=== PATIENT | female | born 1970 | race Caucasian/White ===

== ENCOUNTER 2016-10-01 14:55 | Emergency (ER) | payer BC ==
--- NOTE | 2016-10-01 14:58 | PDOC ---
Attending Attestation - Resident Resident Name: Chava Romo - ED Attending Attestation I have performed the following: I have examined & evaluated the patient, The case was reviewed & discussed with the resident, I agree w/resident's findings & plan, Exceptions are as noted - HPI HPI: 10/01/16 14:58 The patient is a 46-year-old female witha significant past medical history of bladder and thyroid cancer (remission) who presents withs everal days of cough and chills. Her PCP prescribed Augmentin which she has been taking. She now presents with continued symptoms as well as chest pressure. It has been constant for over 36 hours. 10/01/16 15:43 10/01/16 17:06 - Physicial Exam PE: 10/01/16 She is well-appearing and in no acute distress Labs are clear to auscultation bilaterally - Medical Decision Making 10/01/16 17:06 Symptoms have resolved other than cough PERC negative Chest x-ray emergency Department interpretation: No acute cardiopulmonary disease Labs noted A single negative troponin with 36 hours of constant chest pain has a very high negative productive value for acute coronary syndrome Clinical impression: Cough I discussed the physical exam findings, ancillary test results and final diagnoses with the patient. I answered all of the patient's questions. The patient was satisfied with the care received and felt comfortable with the discharge plan and treatment plan. The patient will call their primary care physician within 24 hours to arrange follow-up and will return to the Emergency Department with any new, persistent or worsening symptoms. A portion of this note was documented by scribe services under my direction. I have reviewed the details of the note, within reason, and agree with the documentation with the following case summary and management plan written by me. 10/01/16 17:10 Discharge Disposition - Diagnosis Cough - Discharge Dispostion Disposition: HOME Condition at time of disposition: Improved Last Admission D/C Date: 12/02/13 - Prescriptions Prescriptions: Benzonatate [Tessalon Pearls -] 100 mg PO TID PRN #21 capsule PRN Reason: Cough - Referrals Referrals: Trang Diez MD [Primary Care Provider] - - Patient Instructions Additional Instructions: Followup with your regular doctor within a few days Do not miss your CT scan on monday If chest pain gets worse, return to ED - Post Discharge Activity
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
[2016-10-01 15:27] LABS: MCH 28.2 pg (25.7-33.7); MCHC 32.4 g/dl (32.0-36.0); MEAN CELL VOLUME 87.2 fl (80-96); MEAN PLT VOLUME 8.1 fl (7.5-11.1); PLATELET COUNT 252 K/MM3 (134-434); WHITE BLOOD COUNT 7.5 K/mm3 (4.0-10.0)
[2016-10-01 15:31] VITALS: BMI 30.1
[2016-10-01] MEDS ORDERED: ALPRAZolam 0.25 MG TABLET PO ONE (16:40)
[2016-10-01] MEDS ORDERED: ALPRAZolam 0.25 MG TABLET ONE (16:47)
[2016-10-01 16:55] LABS: ALK PHOS 75 U/L (32-92); ANION GAP 6 (8-16); BILIRUBIN,TOTAL 0.4 mg/dl (0.2-1.0); CALCIUM 9.1 mg/dl (8.4-10.2); CO2 27 mmol/L (22-28); CPK(DFH) 49 IU/L (26-140); CREATININE 0.6 mg/dl (0.6-1.3); GLUCOSE,RANDOM 85 mg/dl (74-106); SGOT/AST 17 U/L (10-42); SGPT/ALT 18 U/L (10-40); TOT PROT 6.8 g/dl (6.4-8.3)
[2016-10-01 17:05] LABS: TROPONIN I (DFP) < 0.03 ng/ml (0.03-0.50)
[2016-10-01 17:19] VITALS: BP 128/64; PULSE 76; TEMP 97.8
--- NOTE | 2016-10-02 23:33 | EKG ---
Test Reason : Blood Pressure : / mmHG Vent. Rate : 098 BPM Atrial Rate : 098 BPM P-R Int : 164 ms QRS Dur : 076 ms QT Int : 360 ms P-R-T Axes : 033 009 029 degrees QTc Int : 459 ms NORMAL SINUS RHYTHM T WAVE ABNORMALITY, CONSIDER ANTERIOR ISCHEMIA ABNORMAL ECG WHEN COMPARED WITH ECG OF 11-MAY-2015 06:31, T WAVE VARIATION Confirmed by TATO BENITES MD ([id number]) on 10/02/2016 11:33:43 PM Referred By: LD GRAYSON Confirmed By:TATO BENITES MD
== END 2016-10-01 17:20 | disposition home or self-care (01) ==
LOC: FER 14:55
DX: R05 Cough (principal); F41.8 Other specified anxiety disorders; E03.9 Hypothyroidism, unspecified; Z85.850 Personal history of malignant neoplasm of thyroid; Z85.51 Personal history of malignant neoplasm of bladder; F17.210 Nicotine dependence, cigarettes, uncomplicated
CPT/HCPCS: 36415; 71020-TC; 80053; 82550; 84484; 84703; 85027; 93005; 99285-25

== ENCOUNTER 2017-01-10 06:26 | Day surgery (SDC) | payer BC ==
[2017-01-06 10:59] VITALS: BMI 28.3
[2017-01-10] MEDS ORDERED: PROPOFOL 20 ML ONE ×2 (07:46)
[2017-01-10] MEDS ORDERED: MIDAZOLAM HCL 2 MG/2 ML SINGLE DOSE VIAL ONE (07:46)
[2017-01-10] MEDS ORDERED: ONDANSETRON 4 MG/2 ML VIAL ONE (07:50)
[2017-01-10] MEDS ORDERED: DEXAMETHASONE SOD PHOSPHATE 4 MG/1 ML VIAL ONE (07:50)
[2017-01-10] MEDS ORDERED: ACETAMINOPHEN INJECTION 100 ML IVPB ONE (07:52)
[2017-01-10] MEDS ORDERED: LIDOCAINE HCL/PF 2% SDV 5ML VIAL ONE (08:09)
--- NOTE | 2017-01-10 08:12 | HP ---
History & Physical Update - History History: No Change - Physical Physical: No Change - Assessment Assessment: No Change - Plan Plan: No Change (Consent signed and witnessed)
[2017-01-10] MEDS ORDERED: KETOROLAC TROMETHAMINE 30 MG/1 ML VIAL ONE (08:31)
[2017-01-10] MEDS ORDERED: LORAZEPAM CARPU-JECT 2 MG/ML DISP.SYRIN ONE (08:55)
[2017-01-10] MEDS ORDERED: ONDANSETRON 4 MG/2 ML VIAL IVPUSH PRN (08:57)
[2017-01-10] MEDS ORDERED: LORAZEPAM CARPU-JECT 2 MG/ML DISP.SYRIN IVPUSH ONE (08:57)
[2017-01-10] MEDS ORDERED: PROMETHAZINE HCL 25 MG/1 ML VIAL IVPUSH PRN (08:57)
[2017-01-10] MEDS ORDERED: LACTATED RINGERS SOLUTION 1,000 ML IV SCH (09:00)
[2017-01-10] MEDS ORDERED: oxyCODONE HCL 5 MG TABLET PO PRN (09:42)
[2017-01-10] MEDS ORDERED: IBUPROFEN 600 MG TABLET (FP) PO PRN (09:42)
[2017-01-10] MEDS ORDERED: ONDANSETRON 4 MG/2 ML VIAL IVPB PRN (09:42)
[2017-01-10] MEDS ORDERED: IBUPROFEN 800 MG/8 ML IJ IVPB PRN (09:42)
[2017-01-10] MEDS ORDERED: ELECTROLYTE-148 SOLN 1,000 ML IV SCH (09:45)
--- NOTE | 2017-01-10 09:47 | OP ---
Operative Note - Note: Operative Date: 01/10/17 Pre-Operative Diagnosis: 46 yo P1 with Perimenopausal bleed, Thick endometrium, personal h/o Bladder and Thyroid CA Operation: Hysteroscopy/Polypectomy/ D&C Findings: Overgrown Endometrium, endometrial polyp Post-Operative Diagnosis: Same as Pre-op Surgeon: Maxine Don Anesthesiologist/SHOE CLEANER: Sarmad Morocho Anesthesia: MAC Specimens Removed: 1. Endometrial polyp. 2. Endometrial curettings Estimated Blood Loss (mls): 10 Drains & Tubes with Location: 0cc Fluid deficit Drains, Volume Out (mls): 50 Fluid Volume Replaced (mls): 300 Operative Report Dictated: Yes
[2017-01-10 10:01] VITALS: TEMP 98.3
[2017-01-10 11:53] VITALS: BP 100/60; PULSE 76
--- NOTE | 2017-01-11 10:41 | PATH ---
Surgical Pathology Report Patient Name: JUAN ALBERTO CASTILLO [facility]. Rec. #: [id number] /Age/Gender: 1970 (Age: 46) / F Account: [id number] Location: [facility] SURGICAL Taken: 01/10/2017 Received: 01/10/2017 Reported: 01/11/2017 Physicians: Maxine Don M.D. Specimen(s) Received A: ENDOMETRIAL CURETTINGS & POLYPOID TISSUE B: POLYP Clinical History Menorrhagia, premenopausal Final Diagnosis A. 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 NO ENDOMETRIAL HYPERPLASIA OR CARCINOMA IDENTIFIED. B. 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 Comment: Recommend correlation with clinical findings and follow up as clinically indicated. Electronically Signed Edouard Yeung M.D. Gross Description A. Received in formalin labeled "endometrial curettings/polypoid tissue," is a 1.8 x 1.4 x 0.3 cm aggregate of johnson-brown soft tissue fragments. The formalin is filtered and the specimen is entirely submitted in one cassette. B. Received in formalin labeled "polyp," is a 1.5 x 0.7 x 0.3 cm aggregate of pink-johnson soft tissue fragments. The formalin is filtered and the specimen is entirely submitted in one cassette. /01/10/201701/10/2017
--- NOTE | 2017-01-12 19:58 | OP ---
DATE OF OPERATION: 01/10/2017 PREOPERATIVE DIAGNOSIS: A 46-year-old, para 1, with perimenopausal bleeding, thick endometrium, personal history of bladder and thyroid cancer. OPERATION: Hysteroscopy, polypectomy, dilation and curettage. FINDINGS: Overgrown endometrium and endometrial polyp. PREOPERATIVE DIAGNOSIS: A 46-year-old, para 1, with perimenopausal bleeding, thick endometrium, personal history of bladder and thyroid cancer. SURGEON: Maxine Don MD ANESTHESIOLOGIST: Sarmad Morocho MD ANESTHESIA: MAC. SPECIMENS SENT TO PATHOLOGY: 1. Endometrial polyp. 2. Endometrial curettings. DESCRIPTION OF THE OPERATIVE PROCEDURE: After assuring informed consent and matching patient's ID, the patient was brought to the operating room, where she was placed in dorsal lithotomy position and MAC anesthesia was administered. Perineum and vagina were prepped and draped in sterile fashion. Bladder was emptied with red rubber catheter and drained 50 mL of clear urine. Hassan specula were placed in the anterior and posterior fornix, and anterior cervical lip was articulated with single-tooth tenaculum. Cervix was gradually dilated with Fam dilators up to the gauge 19. The 5-mm 30-degree scope was introduced atraumatically into the uterus. Bilateral ostia were visualized and uterine lining was found to be slightly overgrown with 1 endometrial polyp. The serrated 2-gauge curette was used to remove the polyp and subsequently perform sharp curettage to send endometrial curettings to pathology. Hysteroscope was reintroduced 1 more time and the uterus was found to be intact. All instruments were removed from the vagina. Excellent hemostasis was achieved. Fluid deficit was zero mL. The patient received 300 mL of Plasmalyte. Estimated blood loss was 10 mL. The patient was brought to the recovery room in stable condition. Juan [id number]
== END 2017-01-10 11:00 | disposition home or self-care (01) ==
LOC: JASU-SURG 06:26
PROVIDERS: ATTEND Obstetrics & Gynecology
PROC: 0UB98ZX Excision of Uterus, Via Natural or Artificial Opening Endoscopic, Diagnostic (ICD-10-PCS; principal; 2017-01-10 08:00)
PROC: 0UDB8ZX Extraction of Endometrium, Via Natural or Artificial Opening Endoscopic, Diagnostic (ICD-10-PCS; 2017-01-10 08:00)
DX: N92.4 Excessive bleeding in the premenopausal period (principal); R93.8 Abnormal findings on diagnostic imaging of other specified body structures; Z85.850 Personal history of malignant neoplasm of thyroid; Z85.51 Personal history of malignant neoplasm of bladder; N84.0 Polyp of corpus uteri
CPT/HCPCS: 84703; 88305-TC; 94760

== ENCOUNTER 2019-06-13 04:42 | Emergency (ER) | payer BC ==
[2019-06-13 04:47] VITALS: TEMP 98.1; BMI 28.3
[2019-06-13] MEDS ORDERED: morphine CARPU-JECT 4 MG/1 ML DISP.SYRIN IVPUSH ONE ×2 (04:56→06:32)
[2019-06-13] MEDS ORDERED: SODIUM CHLORIDE 1,000 ML IV ONE (04:56)
[2019-06-13] MEDS ORDERED: ONDANSETRON 4 MG/2 ML VIAL IVPB ONE (04:56)
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
[2019-06-13] MEDS ORDERED: morphine SULFATE 4 MG/ML VIAL ONE ×2 (05:19→06:36)
[2019-06-13] MEDS ORDERED: ONDANSETRON 4 MG/2 ML VIAL ONE ×2 (05:19→05:21)
[2019-06-13 05:52] LABS: BASO % 0.6 % (0-2.0); EOS % 2.1 % (0-4.5); HEMATOCRIT 37.4 % (32.4-45.2); LYMPH % 25.5 % (8-40); MCH 31.5 pg (25.7-33.7); MCHC 34.7 g/dl (32.0-36.0); MEAN CELL VOLUME 90.6 fl (80-96); MEAN PLT VOLUME 7.7 fl (7.5-11.1); MONO % 3.7 % (3.8-10.2); NEUT % 68.1 % (42.8-82.8); PLATELET COUNT 276 K/MM3 (134-434); RBC 4.13 M/mm3 (3.60-5.2); RDW 13.4 % (11.6-15.6); WHITE BLOOD COUNT 8.6 K/mm3 (4.0-10.0)
[2019-06-13 06:05] LABS: PROTHROMBIN TIME (PATIENT) 11.8 SEC (9.7-13.0)
[2019-06-13 06:07] LABS: ACTIVATED PTT 30.7 SECONDS (25.2-36.5)
[2019-06-13 06:18] LABS: ALBUMIN 3.6 g/dl (3.4-5.0); ALK PHOS 73 U/L (45-117); ANION GAP 7 MMOL/L (8-16); BILIRUBIN,TOTAL 0.3 mg/dL (0.2-1); BLOOD UREA NITROGEN 6.5 mg/dL (7-18); CALCIUM 8.8 mg/dL (8.5-10.1); CHLORIDE 107 mmol/L (98-107); CO2 27 mmol/L (21-32); CREATININE 0.5 mg/dL (0.55-1.3); GLUCOSE,RANDOM 106 mg/dL (74-106); POTASSIUM 4.1 mmol/L (3.5-5.1); SGOT/AST 17 U/L (15-37); SGPT/ALT 33 U/L (13-61); SODIUM 141 mmol/L (136-145); TOT PROT 6.5 g/dl (6.4-8.2)
[2019-06-13] MEDS ORDERED: Methylnaltrexone Bromide 12 MG/0.6 ML KIT SQ ONE (07:22)
--- NOTE | 2019-06-13 07:34 | PDOC ---
*Physical Exam - Vital Signs Last Vital Signs Temp Pulse Resp BP Pulse Ox 98.1 F 79 15 147/68 97 06/13/19 04:45 06/13/19 04:45 06/13/19 04:45 06/13/19 04:45 06/13/19 04:45 ED Treatment Course - LABORATORY CBC & Chemistry Diagram: 06/13/19 05:10 06/13/19 05:10 - ADDITIONAL ORDERS Additional order review: Laboratory Results 06/13/19 06/13/19 06/13/19 05:10 05:10 05:10 PT with INR INR PTT (Actin FS) Cancelled Sodium Potassium Chloride Carbon Dioxide Anion Gap BUN Creatinine Est GFR (CKD-EPI)AfAm Est GFR (CKD-EPI)NonAf Random Glucose Lactic Acid Calcium Total Bilirubin AST ALT Alkaline Phosphatase Creatine Kinase Troponin I Total Protein Albumin Lipase 218 Blood Type A NEGATIVE Antibody Screen Negative 06/13/19 06/13/19 06/13/19 05:10 05:10 05:10 PT with INR 11.80 INR 1.00 PTT (Actin FS) 30.7 Sodium 141 Potassium 4.1 Chloride 107 Carbon Dioxide 27 Anion Gap 7 L BUN 6.5 L Creatinine 0.5 L Est GFR (CKD-EPI)AfAm 132.65 Est GFR (CKD-EPI)NonAf 114.45 Random Glucose 106 Lactic Acid 1.1 Calcium 8.8 Total Bilirubin 0.3 AST 17 ALT 33 Alkaline Phosphatase 73 Creatine Kinase 41 Troponin I < 0.02 Total Protein 6.5 Albumin 3.6 Lipase Blood Type Antibody Screen 06/13/19 05:10 RBC 4.13 MCV 90.6 MCHC 34.7 RDW 13.4 D MPV 7.7 Neutrophils % 68.1 D Lymphocytes % 25.5 D Monocytes % 3.7 L Eosinophils % 2.1 Basophils % 0.6 - Medications Given in the ED: ED Medications Discontinued Medications Generic Name Dose Route Start Last Admin Trade Name Freq PRN Reason Stop Dose Admin Sodium Chloride 1,000 mls @ 1,000 mls/hr 06/13/19 04:56 06/13/19 05:15 Normal Saline - IV 06/13/19 05:55 1,000 mls/hr .Q1H ONE Administration Morphine Sulfate 4 mg 06/13/19 04:56 06/13/19 05:16 Morphine Injection - IVPUSH 06/13/19 04:57 4 mg ONCE ONE Administration Morphine Sulfate 4 mg 06/13/19 06:32 06/13/19 06:34 Morphine Injection - IVPUSH 06/13/19 06:33 4 mg ONCE ONE Administration Ondansetron HCl 8 mg 06/13/19 04:56 06/13/19 05:16 Zofran Injection IVPB 06/13/19 04:57 8 mg ONCE ONE Administration Medical Decision Making - Medical Decision Making 06/13/19 07:29 49 years old with past medical history significant for bladder cancer with recurrence of cancer scheduled for surgery this week presents ED with 4-day history of abdominal pain. Signed out to me pending CAT scan Patient also with constipation x4 days recently taking Percocet for pain we will try Relistor for constipation while pending CAT scan Discharge - Discharge Information Problems reviewed: Yes Clinical Impression/Diagnosis: Abdominal pain Qualifiers: Abdominal location: generalized Qualified Code(s): R10.84 - Generalized abdominal pain Condition: Good - Admission No - Follow up/Referral Referrals: Trang Diez MD [Primary Care Provider] - - Patient Discharge Instructions Additional Instructions: Zofran as prescribed. For today until tomorrow only fluids no solid food if no nausea vomiting by tomorrow okay to proceed to bland diet. Follow-up today or tomorrow with your primary care doctor to discuss further management. Return to ED for any severe uncontrollable symptoms or for any concerns. - Post Discharge Activity
[2019-06-13 07:36] VITALS: BP 150/92; PULSE 72
--- NOTE | 2019-06-14 12:01 | EKG ---
Test Reason : Blood Pressure : / mmHG Vent. Rate : 068 BPM Atrial Rate : 068 BPM P-R Int : 164 ms QRS Dur : 086 ms QT Int : 416 ms P-R-T Axes : 019 022 036 degrees QTc Int : 442 ms NORMAL SINUS RHYTHM MARKED T WAVE ABNORMALITY, CONSIDER ANTERIOR ISCHEMIA Confirmed by YOSVANY THURSTON MD ([id number]) on 06/14/2019 12:01:00 PM Referred By: MD JAIME Confirmed By:YOSVANY THURSTON MD
== END 2019-06-13 09:07 | disposition home or self-care (01) ==
LOC: FER 04:42
PROC: 3E023GC Introduction of Other Therapeutic Substance into Muscle, Percutaneous Approach (ICD-10-PCS; principal; 2019-06-13)
PROC: 3E033NZ Introduction of Analgesics, Hypnotics, Sedatives into Peripheral Vein, Percutaneous Approach (ICD-10-PCS; 2019-06-13)
PROC: 3E033GC Introduction of Other Therapeutic Substance into Peripheral Vein, Percutaneous Approach (ICD-10-PCS; 2019-06-13)
PROC: 3E0337Z Introduction of Electrolytic and Water Balance Substance into Peripheral Vein, Percutaneous Approach (ICD-10-PCS; 2019-06-13)
DX: R10.84 Generalized abdominal pain (principal); Z88.6 Allergy status to analgesic agent; Z88.8 Allergy status to other drugs, medicaments and biological substances
CPT/HCPCS: 36415; 74019-TC-FY; 74177-TC; 80053; 81003; 82550; 83605; 83690; 84484; 85025; 85610; 85730; 86850; 86900; 86901; 87086; 93005; 99283-25; J7030

== ENCOUNTER 2019-07-01 06:26 | Day surgery (SDC) | payer BC ==
[2019-06-27 15:41] VITALS: BMI 31.6
[2019-07-01] MEDS ORDERED: MIDAZOLAM HCL 2 MG/2 ML SINGLE DOSE VIAL ONE ×2 (07:17→08:35)
[2019-07-01] MEDS ORDERED: PROPOFOL 20 ML ONE ×3 (07:17→07:18)
[2019-07-01] MEDS ORDERED: SUCCINYLCHOLINE CHLORIDE 200 MG/10 ML SYRINGE ONE (07:18)
[2019-07-01] MEDS ORDERED: DEXAMETHASONE SOD PHOSPHATE 4 MG/1 ML VIAL ONE (07:31)
[2019-07-01] MEDS ORDERED: KETOROLAC TROMETHAMINE 30 MG/1 ML VIAL ONE (07:31)
[2019-07-01 09:50] VITALS: TEMP 97.8
[2019-07-01] MEDS ORDERED: ACETAMINOPHEN 325 MG TABLET (FP) ONE (10:04)
[2019-07-01] MEDS ORDERED: ACETAMINOPHEN 325 MG TABLET (FP) PO ONE (10:15)
--- NOTE | 2019-07-01 10:34 | OP ---
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
[2019-07-01] MEDS ORDERED: ONDANSETRON 4 MG/2 ML VIAL IVPUSH PRN (12:08)
[2019-07-01 12:19] VITALS: BP 120/80; PULSE 88
--- NOTE | 2019-07-01 15:50 | OP ---
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 PROCEDURE: Cystoscopy and bladder biopsy. ATTENDING: Abigail Hayden MD ANESTHESIA: General. OPERATION: The patient was brought in the operating room, placed in supine position on the operating room table. Anesthesia and preoperative antibiotics were administered. At this point, the patient was prepped and draped in the dorsal lithotomy position in the usual sterile manner. Cystoscopy was performed and posterior erythematous lesions are noted. Biopsy of these lesions was performed. Cauterization was performed with the Bugbee electrode. Excellent hemostasis was obtained. The biopsy specimen was sent to Pathology. The disposition of the patient was to the recovery room. ABIGAIL HAYDEN M.D. [id number]
--- NOTE | 2019-07-02 17:29 | PATH ---
Surgical Pathology Report Patient Name: JUAN ALBERTO CASTILLO [facility]. Rec. #: [id number] /Age/Gender: 1970 (Age: 49) / F Account: [id number] Location: [facility] SURGICAL Taken: 07/01/2019 Received: 07/01/2019 Reported: 07/02/2019 Physicians: Dada Perea Specimen(s) Received BLADDER BIOPSY Clinical History Neoplasm of uncertain behavior of bladder Final Diagnosis BLADDER BIOPSY: UROTHELIAL MUCOSA WITH FOCAL EPITHELIAL DENUDATION SHOWING MILD CHRONIC INFLAMMATION. NEGATIVE FOR MALIGNANCY. Electronically Signed Wyatt Donovan M.D. Gross Description Received in formalin, labeled "bladder biopsy" are 4 johnson, irregular portions of soft tissue ranging from 0.1-0.2 cm. in greatest dimension. The specimens are submitted in toto in one cassette. DL/07/01/2019 saudi/07/01/2019
== END 2019-07-01 10:45 | disposition home or self-care (01) ==
LOC: JASU-SURG 06:26
PROVIDERS: ATTEND Urology
PROC: 0TBB8ZX Excision of Bladder, Via Natural or Artificial Opening Endoscopic, Diagnostic (ICD-10-PCS; principal; 2019-07-01 08:00)
DX: D30.3 Benign neoplasm of bladder (principal); Z85.89 Personal history of malignant neoplasm of other organs and systems; Z85.51 Personal history of malignant neoplasm of bladder
CPT/HCPCS: 88305-TC; 94760

== ENCOUNTER 2020-10-08 14:56 | Emergency (ER) | payer BC ==
[2020-10-08 15:17] VITALS: BP 150/95; PULSE 95; TEMP 99.2; BMI 31.8
== END 2020-10-08 16:26 | disposition home or self-care (01) ==
LOC: FER 14:56
DX: R59.0 Localized enlarged lymph nodes (principal)
CPT/HCPCS: 99282-25

== ENCOUNTER 2020-10-12 16:07 | Emergency (ER) | payer BC ==
[2020-10-12 16:25] VITALS: BP 127/81; PULSE 80; TEMP 98.3; BMI 31.6
[2020-10-12] MEDS ORDERED: ALBUTEROL SO4 HFA INHALER IH ONE (16:40)
== END 2020-10-12 17:58 | disposition home or self-care (01) ==
LOC: FER 16:07
DX: R05 Cough (principal); Z11.52 Encounter for screening for COVID-19
CPT/HCPCS: 71045-TC-FY; 99285-25; C9803; U0003

== ENCOUNTER 2020-11-23 15:28 | Emergency (ER) | payer BC, OTHER ==
[2020-11-23 15:38] VITALS: BP 131/82; PULSE 88; TEMP 97; BMI 31.8
== END 2020-11-23 17:09 | disposition home or self-care (01) ==
LOC: FER 15:28
DX: M79.604 Pain in right leg (principal)
CPT/HCPCS: 93971-TC; 99284-25

== ENCOUNTER 2022-12-28 08:25 | Emergency (ER) | payer BC ==
[2022-12-28 08:50] VITALS: BP 143/92; PULSE 101; RESP 18; TEMP 98.7; BMI 31.5
[2022-12-28] MEDS ORDERED: ALBUTEROL SO4 0.083% IH SOL 2.5 MG/3 ML VIAL.NEB. NEB ONE ×2 (09:15→09:46)
[2022-12-28 10:02] LABS: HEMOGLOBIN 14.4 G/dL (10.7-15.3); MCH 29.6 pg (25.7-33.7); MCHC 34.3 g/dl (32.0-36.0); MEAN CELL VOLUME 86.5 fl (80-96); MEAN PLT VOLUME 7.8 fl (7.5-11.1); PLATELET COUNT 245.3 10^3/uL (134-434); RBC 4.86 10^6/uL (3.60-5.2); RDW 14.4 % (11.6-15.6); WHITE BLOOD COUNT 7.3 10^3/uL (4.0-10.8)
[2022-12-28 10:08] LABS: ALBUMIN 3.9 g/dl (3.4-5.0); ALK PHOS 67 U/L (45-117); ANION GAP 8 MMOL/L (8-16); BILIRUBIN,TOTAL 0.6 mg/dl (0.2-1); CALCIUM 9.3 mg/dl (8.5-10); CHLORIDE 102 mmol/L (98-107); CO2 27 mmol/L (21-32); CREATININE 0.6 mg/dl (0.55-1.3); GLUCOSE,RANDOM 86 mg/dl (74-106); SGOT/AST 16 U/L (15-37); SGPT/ALT 17 U/L (13-61); SODIUM 137 mmol/L (136-145); TOT PROT 6.9 g/dl (6.4-8.2)
[2022-12-28 10:10] LABS: PLATELET ESTIMATE ADEQUATE
== END 2022-12-28 11:40 | disposition home or self-care (01) ==
LOC: FER 08:25
DX: R06.02 Shortness of breath (principal); R05.1 Acute cough; R09.3 Abnormal sputum; Z20.822 Contact with and (suspected) exposure to COVID-19
CPT/HCPCS: 0241U-QW; 36415; 71046-TC-FY; 80053; 82550; 84443; 84484; 85027; 93005; 99285-25

== ENCOUNTER 2023-04-16 09:50 | Emergency (ER) | payer OTHER ==
[2023-04-16 09:57] VITALS: BP 153/107; PULSE 104; RESP 20; TEMP 98.2; BMI 30.1
== END 2023-04-16 10:45 | disposition home or self-care (01) ==
LOC: FER 09:50
DX: F41.8 Other specified anxiety disorders (principal); R53.83 Other fatigue; R63.0 Anorexia; G47.00 Insomnia, unspecified; F99 Mental disorder, not otherwise specified
CPT/HCPCS: 99282-25

== ENCOUNTER 2023-05-11 14:54 | Emergency (ER) | payer OTHER ==
[2023-05-11 16:02] VITALS: BP 137/84; PULSE 82; RESP 18; TEMP 98.2; BMI 32.8
== END 2023-05-11 16:11 | disposition home or self-care (01) ==
LOC: FER 14:54
DX: M25.571 Pain in right ankle and joints of right foot (principal); S93.401A Sprain of unspecified ligament of right ankle, initial encounter; S80.212A Abrasion, left knee, initial encounter; W17.2XXA Fall into hole, initial encounter
CPT/HCPCS: 73610-TC-RT-FY; 73630-TC-RT-FY; 99283-25

== ENCOUNTER 2023-05-28 07:36 | Emergency (ER) | payer OTHER ==
[2023-05-28 07:43] VITALS: TEMP 98.8; BMI 30.6
[2023-05-28] MEDS ORDERED: LACTATED RINGERS SOLUTION 1000 ML INFUS.BAG IV ONE (08:00)
[2023-05-28] MEDS ORDERED: ACETAMINOPHEN 1000 MG/100 ML BAG IVPB ONE (08:00)
[2023-05-28] MEDS ORDERED: ACETAMINOPHEN INJECTION 100 ML IVPB ONE (08:14)
[2023-05-28 08:43] LABS: HEMOGLOBIN 13.9 G/dL (10.7-15.3); MCHC 33.2 g/dl (32.0-36.0); MEAN CELL VOLUME 90.3 fl (80-96); MEAN PLT VOLUME 7.9 fl (7.5-11.1); PLATELET COUNT 281.3 10^3/uL (134-434); RBC 4.65 10^6/uL (3.60-5.2); RDW 15.2 % (11.6-15.6); WHITE BLOOD COUNT 7.4 10^3/uL (4.0-10.8)
[2023-05-28 09:45] LABS: ALBUMIN 4.2 g/dl (3.4-5.0); BLOOD UREA NITROGEN 7.2 mg/dl (7-18); CALCIUM 9.2 mg/dl (8.5-10.1); CREATININE 0.7 mg/dl (0.6-1.3); POTASSIUM 4.6 mmol/L (3.5-5.1); SGOT/AST 12.9 U/L (15-37); SGPT/ALT 13.5 U/L (7-52); TOT PROT 6.3 g/dl (6.4-8.2)
[2023-05-28] MEDS ORDERED: FAMOTIDINE 20 MG/50 ML IVPB 20 MG/50 ML MG IVPB ONE ×2 (09:54→09:57)
[2023-05-28] MEDS ORDERED: MAG HYDROX/AL HYDROX/SIMETH 30 ML UNIT-DOSE CUP PO ONE (09:54)
[2023-05-28] MEDS ORDERED: MAG HYDROX/AL HYDROX/SIMETH 30 ML UNIT-DOSE CUP ONE (09:57)
[2023-05-28 11:10] VITALS: BP 131/91; PULSE 73; RESP 18
[2023-05-28 12:44] LABS: BILIRUBIN,TOTAL 0.4 mg/dl (0.2-1)
== END 2023-05-28 11:12 | disposition home or self-care (01) ==
LOC: FER 07:36
PROC: 3E033GC Introduction of Other Therapeutic Substance into Peripheral Vein, Percutaneous Approach (ICD-10-PCS; principal; 2023-05-28)
PROC: 3E033NZ Introduction of Analgesics, Hypnotics, Sedatives into Peripheral Vein, Percutaneous Approach (ICD-10-PCS; 2023-05-28)
DX: R07.89 Other chest pain (principal); R06.02 Shortness of breath; R22.41 Localized swelling, mass and lump, right lower limb; Z20.822 Contact with and (suspected) exposure to COVID-19
CPT/HCPCS: 0241U-QW; 36415; 71046-TC-FY; 71275-TC; 80053; 83880; 84484; 85027; 93005; 99285-25; Q9967

== ENCOUNTER 2023-08-10 12:10 | Emergency (ER) | payer OTHER ==
[2023-08-10 12:32] VITALS: TEMP 98.3; BMI 31.8
[2023-08-10 15:33] VITALS: BP 121/78; PULSE 82; RESP 18
== END 2023-08-10 15:35 | disposition home or self-care (01) ==
LOC: JER 12:10
DX: R06.02 Shortness of breath (principal); J44.9 Chronic obstructive pulmonary disease, unspecified; Z20.822 Contact with and (suspected) exposure to COVID-19
CPT/HCPCS: 0241U-QW; 93005; 93010; 99284-25

== ENCOUNTER 2023-11-25 14:32 | Emergency (ER) | payer OTHER ==
[2023-11-25 15:02] VITALS: TEMP 98.1; BMI 31.8
[2023-11-25 15:30] VITALS: BP 106/76; PULSE 85; RESP 16
[2023-11-25 15:35] LABS: INR 1.01 (0.83-1.09); PROTHROMBIN TIME (PATIENT) 11.7 SEC (9.7-13.0)
[2023-11-25 15:37] LABS: HEMATOCRIT 41.4 % (32.4-45.2); HEMOGLOBIN 13.9 G/dL (10.7-15.3); MCH 30.2 pg (25.7-33.7); MCHC 33.5 g/dl (32.0-36.0); MEAN CELL VOLUME 89.9 fl (80-96); MEAN PLT VOLUME 7.9 fl (7.5-11.1); PLATELET COUNT 280.8 10^3/uL (134-434); RDW 13.4 % (11.6-15.6); WHITE BLOOD COUNT 7.7 10^3/uL (4.0-10.8)
[2023-11-25 15:39] LABS: PLATELET ESTIMATE ADEQUATE
[2023-11-25 15:43] LABS: ALBUMIN 4.3 g/dl (3.4-5.0); ALK PHOS 57 U/L (45-117); ANION GAP 7 mmol/L (4-13); BILIRUBIN,TOTAL 0.3 mg/dl (0.2-1); CALCIUM 9.6 mg/dl (8.5-10.1); CHLORIDE 105 mmol/L (98-107); CO2 27 mmol/L (21-32); CREATININE 0.7 mg/dl (0.6-1.3); GLUCOSE,RANDOM 109 mg/dl (74-106); POTASSIUM 3.5 mmol/L (3.5-5.1); SGOT/AST 12 U/L (15-37); SGPT/ALT 14 U/L (7-52); SODIUM 139 mmol/L (136-145); TOT PROT 6.3 g/dl (6.4-8.2)
[2023-11-25] MEDS ORDERED: MAG HYDROX/AL HYDROX/SIMETH 30 ML UNIT-DOSE CUP ONE (15:59)
[2023-11-25] MEDS ORDERED: FAMOTIDINE 20 MG/50 ML IVPB 20 MG/50 ML MG IVPB ONE (15:59)
[2023-11-25] MEDS: FAMOTIDINE 20 MG/50 ML IVPB 20 MG/50 ML MG IVPB ONE (16:00)
[2023-11-25] MEDS: MAG HYDROX/AL HYDROX/SIMETH 30 ML UNIT-DOSE CUP PO ONE (16:00)
[2023-11-25] MEDS ORDERED: SUCRALFATE 1 GM/10 ML UNIT DOSE CUPS ONE (17:30)
[2023-11-25] MEDS: SUCRALFATE 1 GM/10 ML UNIT DOSE CUPS PO ONE (17:31)
== END 2023-11-25 17:36 | disposition home or self-care (01) ==
LOC: FER 14:32 → SUPCPDRO 14:32 → FER 17:36
PROC: 3E033GC Introduction of Other Therapeutic Substance into Peripheral Vein, Percutaneous Approach (ICD-10-PCS; principal; 2023-11-25)
DX: R07.9 Chest pain, unspecified (principal); R06.02 Shortness of breath; Z20.822 Contact with and (suspected) exposure to COVID-19
CPT/HCPCS: 0241U-QW; 36415; 71045-TC-FY; 80053; 84484; 85027; 85610; 93005; 99285-25

== ENCOUNTER 2024-07-14 07:58 | Emergency (ER) | payer OTHER ==
[2024-07-14] MEDS ORDERED: ALBUTEROL SO4 2.5/IPRATROPIUM 0.5 INH SOL 3 ML VIAL.NEB. NEB ONE (08:25)
[2024-07-14 08:30] VITALS: BP 124/75; PULSE 87; RESP 20; TEMP 97.5; BMI 30.9
[2024-07-14] MEDS: ALBUTEROL SO4 2.5/IPRATROPIUM 0.5 INH SOL 3 ML VIAL.NEB. NEB SCH (08:30)
[2024-07-14] MEDS ORDERED: predniSONE 20 MG TABLET (UD) ONE (08:30)
[2024-07-14] MEDS: predniSONE 20 MG TABLET (UD) PO ONE (08:36)
[2024-07-14] MEDS ORDERED: LORazepam 0.5 MG TABLET ONE (09:28)
[2024-07-14] MEDS: LORazepam 2 MG TABLET PO ONE (09:30)
== END 2024-07-14 10:24 | disposition home or self-care (01) ==
LOC: FER 07:58
PROC: 3E0F7GC Introduction of Other Therapeutic Substance into Respiratory Tract, Via Natural or Artificial Opening (ICD-10-PCS; principal; 2024-07-14)
DX: R07.89 Other chest pain (principal); J44.1 Chronic obstructive pulmonary disease with (acute) exacerbation
CPT/HCPCS: 71046-TC-FY; 93005; 99284-25